=== PATIENT | male | born 1980 | race Hispanic/Latino ===

== ENCOUNTER 2017-06-03 11:31 | Emergency (ER) | payer OTHER ==
[2017-06-03 11:59] VITALS: TEMP 98.4
--- NOTE | 2017-06-03 12:30 | ED PDOC ---
Arrival/HPI - General Chief Complaint: Back Pain Time Seen by Provider: 06/03/17 12:09 Historian: Patient - History of Present Illness Narrative History of Present Illness (Text): 06/03/17 12:22 A 36 year old male presents to the emergency department complaining of right sided back pain after injury 5 days ago. Patient reports his pain began after doing some heavy lifting at work. Patient took Tylebol and used icy hot patches , with no relief. Patient denies any fever, chills, nausea, vomiting, abdominal pain, urinary/bowel incontinence, chest pain, shortness of breath, weakness or any other complaints. Time/Duration: Other (5 days ago) Symptom Course: Unchanged Quality: Other Context: Work Past Medical History - Provider Review Nursing Documentation Reviewed: Yes - Infectious Disease Hx of Infectious Diseases: None - Psychiatric Hx Substance Use: No - Surgical History Other/Comment: cyst removal from neck - Anesthesia Hx Anesthesia: No Hx Anesthesia Reactions: No Family/Social History - Physician Review Nursing Documentation Reviewed: Yes Family/Social History: No Known Family HX Smoking Status: Current Some Days Smoker Hx Alcohol Use: No Hx Substance Use: No Allergies/Home Meds Allergies/Adverse Reactions: Allergies No Known Allergies Allergy (Verified 06/03/17 11:59) Home Medications: Home Meds Medication Instructions Recorded Confirmed No Known Home Med 06/03/17 06/03/17 Review of Systems - Physician Review All systems were reviewed & negative as marked: Yes - Review of Systems Constitutional: absent: Fevers, Night Sweats Respiratory: absent: SOB Cardiovascular: absent: Chest Pain Gastrointestinal: absent: Abdominal Pain, Nausea, Vomiting, Other (Bowel incontinence) Genitourinary Male: absent: Other (Urinary incontinence) Musculoskeletal: Back Pain (right sided) Neurological: absent: Focal Weakness Physical Exam Vital Signs Reviewed: Yes Vital Signs Temp Pulse Resp BP Pulse Ox 06/03/17 13:34 70 18 140/83 99 06/03/17 11:53 98.4 F 69 16 143/92 H 98 Temperature: Afebrile Blood Pressure: Hypertensive Pulse: Regular Respiratory Rate: Normal Appearance: Positive for: Well-Appearing, Non-Toxic, Comfortable Pain Distress: None Mental Status: Positive for: Alert and Oriented X 3 - Systems Exam Head: Present: Atraumatic, Normocephalic Pupils: Present: PERRL Extroacular Muscles: Present: EOMI Conjunctiva: Present: Normal Mouth: Present: Moist Mucous Membranes Neck: Present: Normal Range of Motion Respiratory/Chest: Present: Clear to Auscultation, Good Air Exchange. No: Respiratory Distress, Accessory Muscle Use Cardiovascular: Present: Regular Rate and Rhythm, Normal S1, S2. No: Murmurs Abdomen: Present: Normal Bowel Sounds. No: Tenderness, Distention, Peritoneal Signs Back: Present: Paraspinal Tenderness (right paraspinal tenderness to palpation) . No: Midline Tenderness, Pain with Leg Raise Upper Extremity: Present: Normal Inspection, Normal ROM, NORMAL PULSES, Neurovascularly Intact. No: Cyanosis, Edema Lower Extremity: Present: Normal Inspection, NORMAL PULSES, Normal ROM, Neurovascularly Intact. No: Edema Neurological: Present: GCS=15, CN II-XII Intact, Speech Normal, Motor Func Grossly Intact, Normal Sensory Function, Normal Cerebellar Funct Skin: Present: Warm, Dry, Normal Color. No: Rashes Psychiatric: Present: Alert, Oriented x 3, Normal Insight, Normal Concentration Medical Decision Making ED Course and Treatment: 06/03/17 12:22 Impression: A 36 year old male with right sided back pain Plan: -- Lumbar spine xray -- Flexeril and Toradol -- Reassess and disposition Progress Notes: 06/03/17 13:10 Patient refusing lumbar spine xray. He reports he feels better and would like to be discharged home. Patient was instructed to follow up with physician or return if symptoms worsen or new concerning symptoms arise. - Medication Orders Current Medication Orders: Discontinued Medications Cyclobenzaprine HCl (Flexeril) 10 mg PO STAT STA Stop: 06/03/17 12:22 Last Admin: 06/03/17 12:35 Dose: 10 mg Ketorolac Tromethamine (Toradol) 60 mg IM ONCE ONE Stop: 06/03/17 12:22 Last Admin: 06/03/17 12:35 Dose: 60 mg MAR Pain Assessment Document 06/03/17 12:35 EQ (Rec: 06/03/17 12:35 EQ [id number]) Pain Reassessment Is this a pain reassessment? No Sleep Is patient sleeping during reassessment? No Presence of Pain Presence of Pain Yes Pain Scale Used Pain Scale Used Numeric IM Administration Charges Document 06/03/17 12:35 EQ (Rec: 06/03/17 12:35 EQ [id number]) Charges for Administration # of IM Administrations 1 - Scribe Statement The provider has reviewed the documentation as recorded by the Christy Luevano Provider Scribe Attestation: All medical record entries made by the Scribe were at my direction and personally dictated by me. I have reviewed the chart and agree that the record accurately reflects my personal performance of the history, physical exam, medical decision making, and the department course for this patient. I have also personally directed, reviewed, and agree with the discharge instructions and disposition. Disposition/Present on Arrival - Present on Arrival Any Indicators Present on Arrival: No History of DVT/PE: No History of Uncontrolled Diabetes: No Urinary Catheter: No History of Decub. Ulcer: No History Surgical Site Infection Following: None - Disposition Have Diagnosis and Disposition been Completed?: Yes Diagnosis: Back pain Disposition: HOME/ ROUTINE Disposition Time: 03:00 Condition: IMPROVED Discharge Instructions (ExitCare): Low Back Pain (DC) Additional Instructions: FOLLOW UP WITH YOUR PRIMARY DOCTOR IN 1-2 DAYS also follow up with orthopedics take motrin for pain as needed RETURN TO THE ED WITH ANY WORSENING OR CONCERNING SYMPTOMS Referrals: Yessica Roland MD [Staff Provider] - Follow up with primary Forms: [employer] ([place])
[2017-06-03 13:35] VITALS: BP 140/83; PULSE 70; RESP 18; O2SAT 99
== END 2017-06-03 13:34 | disposition home or self-care (01) ==
LOC: ED 11:31
DX: M54.5 Low back pain (principal)
CPT/HCPCS: 96372; 99282; J1885

== ENCOUNTER 2017-09-17 07:56 | Emergency (ER) | payer OTHER ==
[2017-09-17 08:18] VITALS: TEMP 98.3
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
[2017-09-17 09:32] VITALS: BP 141/79; PULSE 75; RESP 19; O2SAT 100
== END 2017-09-17 09:15 | disposition home or self-care (01) ==
LOC: ED 07:56
DX: M54.2 Cervicalgia (principal); V49.9XXA Car occupant (driver) (passenger) injured in unspecified traffic accident, initial encounter; Y92.410 Unspecified street and highway as the place of occurrence of the external cause